=== PATIENT | female | born 1975 | race African-American/Black ===

== ENCOUNTER 2018-07-05 11:30 | Emergency (ER) | payer MEDICAID ==
[~2018-07-05] VITALS: Ht 170.2 cm; Wt 109.8 kg
[~2018-07-05 11:30] MED LIST: ARIP1SOL2 PO; QUET25TA PO; SERT20OR PO; TRAZ5POW MC
--- NOTE | 2018-07-05 11:34 | NUR ---
dr bhatt at bedside for eval.
--- NOTE | 2018-07-05 11:45 | NUR ---
Hilda piedra in [facility] - 07/05/18 at 1215 by SOPHIE laborer plumbing at bedside for ambroseal.
--- NOTE | 2018-07-05 11:45 | NUR ---
rn lab at bedside for blood draw.
--- NOTE | 2018-07-05 11:46 | NUR ---
pt to er bed 07. here for si. pt denies any plan at this time. denies any recent drug use. pt is aao. placed on si precaution. awaiting md fernández.
[2018-07-05 11:49] LABS: BASOPHILS # (AUTO) 0.1 /CMM (0.0-0.2); BASOPHILS % (AUTO) 0.4 % (0.0-2.0); EOSINOPHILS % (AUTO) 0.8 % (0.0-6.0); HEMATOCRIT 41 % (33-45); HEMOGLOBIN 13.6 g/dL (11.5-14.8); LYMPHOCYTES # (AUTO) 2.2 /CMM (0.8-4.8); LYMPHOCYTES % (AUTO) 17.2 % (20.0-44.0); MEAN CORPUSCULAR HEMOGLOBIN 29 PG (26.0-33.0); MEAN CORPUSCULAR HGB CONC 33 g/dl (31.0-36.0); MEAN CORPUSCULAR VOLUME 87 fL (82-100); MONOCYTES # (AUTO) 0.6 /CMM (0.1-1.30); MONOCYTES % (AUTO) 4.6 % (2.0-12.0); NEUTROPHILS # (AUTO) 9.5 /CMM (1.8-8.9); PLATELET COUNT (AUTO) 261 /CMM (150-450); RDW COEFFICIENT OF VARIATION 13.1 (11.5-15.0); RED BLOOD CELL COUNT(AUTO) 4.74 MIL/uL (4.0-5.2); WHITE BLOOD COUNT (AUTO) 12.5 K/uL (4.3-11.0)
[2018-07-05 11:56] LABS: CALCIUM, SERUM 8.7 mg/dL (8.5-10.1); CARBON DIOXIDE 26 mmol/L (21-32); CHLORIDE 104 mmol/L (98-107); CREATININE 1.1 mg/dL (0.6-1.3); GLUCOSE 270 mg/dL (74-106); POTASSIUM 3.7 mmol/L (3.5-5.1); SODIUM SERUM 137 mmol/L (136-145); UREA NITROGEN, BLOOD 12 mg/dL (7-18)
[2018-07-05 12:02] LABS: ACETAMINOPHEN 0 ug/ml (10-30); ALANINE AMINOTRANSFERASE 16 U/L (12-78); ALBUMIN 3.6 g/dL (3.4-5.0); ALCOHOL, BLOOD < 3 mg/dL (0-0); ALKALINE PHOSPHATASE 103 U/L (46-116); ASPARTATE AMINOTRANSFERASE 11 U/L (15-37); BILIRUBIN,DIRECT 0.1 mg/dL (0.0-0.2); BILIRUBIN,TOTAL 0.3 mg/dL (0.2-1.0); SALICYLATE 1.4 mg/dL (2.8-20.0); TOTAL PROTEIN, SERUM 7.3 g/dL (6.4-8.2)
--- NOTE | 2018-07-05 12:16 | NUR ---
pt provided w/ lunch tray.
[2018-07-05 12:45] LABS: APPEARANCE,URINE Slightly Cloudy (CLEAR); BILIRUBIN,URINE Negative (NEGATIVE); BLOOD, URINE Trace-intact Ery/uL (NEGATIVE); COLOR,URINE Yellow (YELLOW); KETONES,URINE Trace (NEGATIVE); LEUKOCYTE ESTERASE ,URINE Small (NEGATIVE); NITRITE, URINE Negative (NEGATIVE); PH,URINE 5.5 (5.0-8.0); PROTEIN,URINE Negative (NEGATIVE); UGLUCOSE >=1000 mg/dL (NEGATIVE)
--- NOTE | 2018-07-05 13:26 | NUR ---
called elfego corona eta in an hour.
[2018-07-05 13:31] LABS: RBC,URINE 0-3 /HPF (0-2); SQUAMOUS EPITHELIAL CELL,UR Moderate /HPF (None Seen)
[2018-07-05 13:32] LABS: BACTERIA,URINE 3+ /HPF (None Seen)
--- NOTE | 2018-07-05 14:39 | NUR ---
cj telles at bedside for psych eval.
[2018-07-05] MEDS ORDERED: INSULIN REGULAR, HUMAN 100 UNIT/ML 10 ML VIAL ONE (16:00)
[2018-07-05] MEDS ORDERED: INSULIN REGULAR, HUMAN 100 UNIT/ML 10 ML VIAL SQ ONE ×3 (16:00→20:30)
--- NOTE | 2018-07-05 17:38 | NUR ---
dr lauren made aware of recent accucheck. verbal order for regular insulin 4 units ordered and carried out. llq abdomen. dose witnessed by vernell kurtz.
[2018-07-05] MEDS ORDERED: METFORMIN 850 MG TABLET PO ONE (18:30)
--- NOTE | 2018-07-05 20:17 | NUR ---
dr lauren made aware of recent accucheck.
--- NOTE | 2018-07-05 20:47 | NUR ---
Incoming call fr [email or web address] [phone], will hold bed for pt & accept pt once BG below 200.
--- NOTE | 2018-07-05 22:15 | NUR ---
[phone] PT GOING TO UNIT 1 VOLUNTARY
--- NOTE | 2018-07-05 22:27 | NUR ---
REPORT GIVEN TO IMANI FOR [facility].
--- NOTE | 2018-07-05 22:38 | NUR ---
pt medically cleared. report given to blessing at [facility]. sent to [facility] for voluntary psych admit.
[2018-07-05 22:40] VITALS: BP 135/88
== END 2018-07-05 22:41 ==
LOC: ER 11:31
DX: R45.851 Suicidal ideations (principal); R73.9 Hyperglycemia, unspecified; F25.9 Schizoaffective disorder, unspecified; Z88.0 Allergy status to penicillin; Z88.8 Allergy status to other drugs, medicaments and biological substances
CPT/HCPCS: 36415; 80048; 80076; 80305; 80329; 81001; 82962 ×5; 84703; 85025; 87086; 96372 ×3; 99285; A4606; G0480 ×2; J1815; Z7610; 81000-TC

== ENCOUNTER 2018-08-29 08:43 | Emergency (ER) | payer MEDICAID ==
[~2018-08-29] VITALS: Ht 170.2 cm; Wt 112.9 kg
[2018-08-29] MEDS ORDERED: NITROGLYCERIN PACKET 1 GM PACKET ONE (09:11)
[2018-08-29] MEDS ORDERED: ASPIRIN 325 MG TABLET ONE (09:12)
--- NOTE | 2018-08-29 09:15 | NUR ---
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 NO SOB. VSS. SEEN BY MD FOR EVAL. SAFETY AND COMFORT MEASURES PROVIDED. EKG IN PROCESS AT BS. WILL MONITOR.
[2018-08-29] MEDS ORDERED: ASPIRIN EC 325 MG TABLET.DR PO ONE (09:25)
[2018-08-29] MEDS ORDERED: diphenhydrAMINE HCL 50 MG/ML VIAL ONE (09:25)
[2018-08-29] MEDS ORDERED: ASPIRIN 325 MG TABLET PO ONE (09:30)
[2018-08-29] MEDS ORDERED: diphenhydrAMINE HCL 50 MG/ML VIAL IV ONE (09:30)
[2018-08-29] MEDS ORDERED: NITROGLYCERIN PACKET 1 GM PACKET TD ONE (09:30)
--- NOTE | 2018-08-29 09:30 | NUR ---
MEDICATED ORDERED. IV ACCESS STARTED. BLOOD DRAWN FOR LABS.
[2018-08-29 09:34] LABS: BASOPHILS # (AUTO) 0.3 /CMM (0.0-0.2); BASOPHILS % (AUTO) 2.5 % (0.0-2.0); EOSINOPHILS % (AUTO) 0.9 % (0.0-6.0); HEMATOCRIT 42 % (33-45); HEMOGLOBIN 13.7 g/dL (11.5-14.8); LYMPHOCYTES # (AUTO) 2.5 /CMM (0.8-4.8); LYMPHOCYTES % (AUTO) 21.4 % (20.0-44.0); MEAN CORPUSCULAR HGB CONC 33 g/dl (31.0-36.0); MEAN CORPUSCULAR VOLUME 85 fL (82-100); MONOCYTES # (AUTO) 0.7 /CMM (0.1-1.30); MONOCYTES % (AUTO) 6.3 % (2.0-12.0); NEUTROPHILS # (AUTO) 7.9 /CMM (1.8-8.9); NEUTROPHILS % (AUTO) 68.9 % (43.0-81.0); PLATELET COUNT (AUTO) 280 /CMM (150-450); RDW COEFFICIENT OF VARIATION 13.8 (11.5-15.0); RED BLOOD CELL COUNT(AUTO) 4.94 MIL/uL (4.0-5.2); WHITE BLOOD COUNT (AUTO) 11.5 K/uL (4.3-11.0)
--- NOTE | 2018-08-29 09:41 | NUR ---
KATELYN AT BS.
[2018-08-29 09:44] LABS: CALCIUM, SERUM 9.4 mg/dL (8.5-10.1); CARBON DIOXIDE 27 mmol/L (21-32); CHLORIDE 104 mmol/L (98-107); CREATININE 0.8 mg/dL (0.6-1.3); GLUCOSE 105 mg/dL (74-106); POTASSIUM 3.7 mmol/L (3.5-5.1); SODIUM SERUM 139 mmol/L (136-145); UREA NITROGEN, BLOOD 9 mg/dL (7-18)
[2018-08-29 09:49] LABS: INR 0.97 (0.87-1.13)
[2018-08-29 09:53] LABS: TROPONIN I < 0.017 ng/mL (0.00-0.056)
--- NOTE | 2018-08-29 10:32 | NUR ---
Patient does not wish to proceed with medical care recommended by . Patient given information related to possible complications, up to and including , which could occur as a result of leaving the hospital at this time. Patient verbalizes understanding of risks involved due to leaving against medical advice. Patient has signed AMA form.
[2018-08-29 10:34] VITALS: BP 137/80
--- NOTE | 2018-08-29 10:36 | NUR ---
Patient does not wish to proceed with medical care recommended by Dr. Hackett. Patient given information related to possible complications, up to and including , which could occur as a result of leaving the hospital at this time. Patient verbalizes understanding of risks involved due to leaving against medical advice. Patient has signed AMA form.
== END 2018-08-29 10:37 | disposition left against medical advice (07) ==
LOC: ER 08:43
DX: R07.89 Other chest pain (principal); F14.90 Cocaine use, unspecified, uncomplicated; E11.9 Type 2 diabetes mellitus without complications; I10 Essential (primary) hypertension; F25.9 Schizoaffective disorder, unspecified; F17.200 Nicotine dependence, unspecified, uncomplicated; R00.0 Tachycardia, unspecified; Z88.0 Allergy status to penicillin; Z60.2 Problems related to living alone; Z88.8 Allergy status to other drugs, medicaments and biological substances
CPT/HCPCS: 36415; 71045; 80048; 84484; 85025; 85730; 93005 ×2; 96374; 99285; A4606; J1200; Z7610

== ENCOUNTER 2020-11-22 15:08 | Emergency (ER) | payer MEDICAID ==
--- NOTE | 2020-11-22 17:55 | NUR ---
CALLED IN ED WAITING ROOM. NO RESPONSE.
--- NOTE | 2020-11-22 18:27 | NUR ---
CALLED IN ED WAITING ROOM. NO RESPONSE.
--- NOTE | 2020-11-22 18:30 | NUR ---
UNABLE TO DEPART IN [facility]
== END 2020-11-22 18:30 | disposition left against medical advice (07) ==
LOC: ER 15:08
DX: Z75.3 Unavailability and inaccessibility of health-care facilities (principal)

== ENCOUNTER 2021-03-02 07:58 | Emergency (ER) | payer MEDICAID ==
[~2021-03-02] VITALS: Ht 170.2 cm; Wt 74.8 kg
[2021-03-02 08:07] VITALS: BP 142/91
[2021-03-02] MEDS ORDERED: DOXY100C41 PO (08:12)
[2021-03-02] MEDS ORDERED: GUAI-671 PO (08:12)
--- NOTE | 2021-03-02 08:14 | NUR ---
decadron IM given as ordered (4 mg )
--- NOTE | 2021-03-02 08:15 | NUR ---
Patient discharged to home in stable condition. Written and verbal after care instructions given. Patient verbalizes understanding of instruction.
[2021-03-02] MEDS ORDERED: DEXAMETHASONE SOD PHOSPHATE 4 MG/ML VIAL ONE (08:16)
[2021-03-02] MEDS ORDERED: DEXAMETHASONE SOD PHOSPHATE 10 MG/ML VIAL IM ONE (08:30)
== END 2021-03-02 08:22 | disposition home or self-care (01) ==
LOC: ER 08:03
DX: J02.9 Acute pharyngitis, unspecified (principal); F17.200 Nicotine dependence, unspecified, uncomplicated; F25.9 Schizoaffective disorder, unspecified; Z88.0 Allergy status to penicillin; Z88.8 Allergy status to other drugs, medicaments and biological substances; Z60.2 Problems related to living alone; Z79.899 Other long term (current) drug therapy
CPT/HCPCS: 96372; 99283; J1100

== ENCOUNTER 2021-10-30 01:40 | Emergency (ER) | payer MEDICAID ==
[~2021-10-30] VITALS: Ht 170.2 cm; Wt 71.7 kg
[~2021-10-30 01:40] MED LIST changes: +DOXY-326 PO; +GUAI-671 PO
--- NOTE | 2021-10-30 02:03 | NUR ---
PT AAOX4. BIBSELF C/O SI WITH NO PLAN. REQUESTING [facility] ADMISSION. AWAITING ER MD FOR EVAL AND ORDERS.
--- NOTE | 2021-10-30 02:05 | NUR ---
URINE COLLECTED, SENT TO LAB.
--- NOTE | 2021-10-30 02:05 | NUR ---
RAKELID SWABBED, SENT TO LAB.
[2021-10-30 02:16] LABS: BASOPHILS # (AUTO) 0.1 K/uL (0.0-0.2); BASOPHILS % (AUTO) 0.7 % (0.0-2.0); EOSINOPHILS % (AUTO) 1.8 % (0.0-6.0); HEMATOCRIT 43 % (33-45); HEMOGLOBIN 14.1 g/dL (11.5-14.8); LYMPHOCYTES # (AUTO) 1.9 K/uL (0.8-4.8); LYMPHOCYTES % (AUTO) 22.8 % (20.0-44.0); MEAN CORPUSCULAR HGB CONC 33 g/dl (31.0-36.0); MEAN CORPUSCULAR VOLUME 93 fL (82-100); MONOCYTES # (AUTO) 0.5 K/uL (0.1-1.30); MONOCYTES % (AUTO) 5.7 % (2.0-12.0); NEUTROPHILS # (AUTO) 5.8 K/uL (1.8-8.9); PLATELET COUNT (AUTO) 239 K/uL (150-450); WHITE BLOOD COUNT (AUTO) 8.4 K/uL (4.3-11.0)
[2021-10-30 02:24] LABS: CALCIUM, SERUM 9.1 mg/dL (8.5-10.1); CARBON DIOXIDE 29 mmol/L (21-32); CHLORIDE 105 mmol/L (98-107); CREATININE 0.9 mg/dL (0.6-1.3); GLUCOSE 66 mg/dL (74-106); POTASSIUM 3.9 mmol/L (3.5-5.1); SODIUM SERUM 141 mmol/L (136-145); UREA NITROGEN, BLOOD 12 mg/dL (7-18)
[2021-10-30 02:31] LABS: BILIRUBIN,URINE SMALL (NEGATIVE); LEUKOCYTE ESTERASE ,URINE SMALL (NEGATIVE); NITRITE, URINE NEGATIVE (NEGATIVE); PROTEIN,URINE TRACE mg/dl (NEGATIVE); UGLUCOSE NEGATIVE (NEGATIVE)
[2021-10-30 02:31] LABS: ALANINE AMINOTRANSFERASE 16 U/L (12-78); ALBUMIN 4.4 g/dL (3.4-5.0); ALCOHOL, BLOOD < 3 mg/dL (0-0); ALKALINE PHOSPHATASE 85 U/L (46-116); ASPARTATE AMINOTRANSFERASE 14 U/L (15-37); BILIRUBIN,DIRECT 0.1 mg/dL (0.0-0.2); BILIRUBIN,TOTAL 0.5 mg/dL (0.2-1.0); TOTAL PROTEIN, SERUM 7.9 g/dL (6.4-8.2)
[2021-10-30 02:35] LABS: COLOR,URINE DARK YELLOW (YELLOW)
[2021-10-30 02:40] LABS: BACTERIA,URINE Moderate /HPF (None Seen); MUCUS,URINE Moderate /LPF (None Seen); RBC,URINE 0-2 /HPF (0-2); SQUAMOUS EPITHELIAL CELL,UR Moderate /HPF (None Seen); WBC,URINE 21-50 /HPF (0-3)
[2021-10-30 02:48] LABS: ACETAMINOPHEN < 2 ug/ml (10-30)
[2021-10-30] MEDS ORDERED: NITROFURANTOIN/NITROFURAN MONOHYDRATE 100 MG CAPSULE ONE (02:59)
[2021-10-30] MEDS ORDERED: NITROFURANTOIN/NITROFURAN MONOHYDRATE 100 MG CAPSULE PO ONE (03:00)
[2021-10-30] MEDS ORDERED: IBUPROFEN 600 MG TABLET ONE ×2 (04:14→05:21)
[2021-10-30] MEDS ORDERED: MAG HYDROX/AL HYDROX/SIMETH 30 ML UDC ONE ×2 (04:14→05:21)
[2021-10-30] MEDS ORDERED: MAG HYDROX/AL HYDROX/SIMETH 30 ML UDC PO ONE (04:30)
[2021-10-30] MEDS ORDERED: IBUPROFEN 600 MG TABLET PO ONE (04:30)
[2021-10-30] MEDS ORDERED: NITR100C6 PO (05:11)
--- NOTE | 2021-10-30 09:46 | NUR ---
CALLED [facility] AND SET UP BLS TRANSPORT ETA 1100
--- NOTE | 2021-10-30 09:55 | NUR ---
REPORT GIVEN TO NURSING STEPHON PALMER FROM [facility]
--- NOTE | 2021-10-30 11:33 | NUR ---
THE PATIENT IS TRANSFERED TO [facility] IN STABLE CONDITION.
[2021-10-30 11:34] VITALS: BP 131/86
== END 2021-10-30 11:34 ==
LOC: ER 01:44
DX: R45.851 Suicidal ideations (principal); N39.0 Urinary tract infection, site not specified; F15.10 Other stimulant abuse, uncomplicated; Z20.822 Contact with and (suspected) exposure to COVID-19; F17.200 Nicotine dependence, unspecified, uncomplicated; Z79.899 Other long term (current) drug therapy; Z88.0 Allergy status to penicillin; Z88.8 Allergy status to other drugs, medicaments and biological substances; F25.9 Schizoaffective disorder, unspecified; E11.9 Type 2 diabetes mellitus without complications; I10 Essential (primary) hypertension; F32.A Depression, unspecified
CPT/HCPCS: 36415; 80048; 80076; 80143; 80307; 80320; 81001; 84703; 85025; 87086; 87426; 99285; C9803; G0480

== ENCOUNTER 2022-02-22 11:26 | Emergency (ER) | payer MEDICAID ==
[~2022-02-22] VITALS: Ht 170.2 cm; Wt 67.1 kg
[~2022-02-22 11:26] MED LIST changes: +NITR100C6 PO
--- NOTE | 2022-02-22 11:43 | NUR ---
CAME IN FOR FEELING SUICIDAL,PLAN IS TO OD ON MEDS,REQUESTING VOLUNTARY ADMISSION TO [facility]. TO ER BED 18, HOOKED TO MONITOR, CHANGEDT O HOSP GOWN, WARM BLANKET PROVIDED. PATIENT AAO x 4. SUICIDAL PRECAUTIONS APPLIED. 1:[address] RODRIGUEZ AT BEDSIDE
--- NOTE | 2022-02-22 11:52 | NUR ---
RAPID COVID SWAB DONE AND SENT TO LAB
[2022-02-22 12:19] LABS: BASOPHILS % (AUTO) 0.5 % (0.0-2.0); EOSINOPHILS % (AUTO) 1.1 % (0.0-6.0); HEMATOCRIT 41 % (33-45); HEMOGLOBIN 13.4 g/dL (11.5-14.8); LYMPHOCYTES # (AUTO) 1.5 K/uL (0.8-4.8); LYMPHOCYTES % (AUTO) 18.2 % (20.0-44.0); MEAN CORPUSCULAR HGB CONC 33 g/dl (31.0-36.0); MEAN CORPUSCULAR VOLUME 91 fL (82-100); MONOCYTES # (AUTO) 0.6 K/uL (0.1-1.30); MONOCYTES % (AUTO) 6.9 % (2.0-12.0); NEUTROPHILS # (AUTO) 6.1 K/uL (1.8-8.9); NEUTROPHILS % (AUTO) 73.3 % (43.0-81.0); PLATELET COUNT (AUTO) 251 K/uL (150-450); RED BLOOD CELL COUNT(AUTO) 4.51 MIL/uL (4.0-5.2); WHITE BLOOD COUNT (AUTO) 8.3 K/uL (4.3-11.0)
[2022-02-22 12:25] LABS: BILIRUBIN,URINE NEGATIVE (NEGATIVE); COLOR,URINE YELLOW (YELLOW); LEUKOCYTE ESTERASE ,URINE MODERATE (NEGATIVE); NITRITE, URINE NEGATIVE (NEGATIVE); PROTEIN,URINE NEGATIVE (NEGATIVE); UGLUCOSE NEGATIVE (NEGATIVE); UROBILINOGEN,URINE 0.2 EU/dL (0.2)
[2022-02-22 12:32] LABS: ALANINE AMINOTRANSFERASE 15 U/L (12-78); ALBUMIN 3.7 g/dL (3.4-5.0); ALCOHOL, BLOOD < 3 mg/dL (0-0); ALKALINE PHOSPHATASE 94 U/L (46-116); ASPARTATE AMINOTRANSFERASE 11 U/L (15-37); BILIRUBIN,DIRECT 0.1 mg/dL (0.0-0.2); BILIRUBIN,TOTAL 0.1 mg/dL (0.2-1.0); CALCIUM, SERUM 8.6 mg/dL (8.5-10.1); CARBON DIOXIDE 28 mmol/L (21-32); CHLORIDE 109 mmol/L (98-107); CREATININE 0.8 mg/dL (0.6-1.3); GLUCOSE 83 mg/dL (74-106); POTASSIUM 3.7 mmol/L (3.5-5.1); SODIUM SERUM 142 mmol/L (136-145); TOTAL PROTEIN, SERUM 7.1 g/dL (6.4-8.2); UREA NITROGEN, BLOOD 9 mg/dL (7-18)
[2022-02-22 12:34] LABS: ACETAMINOPHEN 0 ug/ml (10-30)
[2022-02-22 12:44] LABS: BACTERIA,URINE Moderate /HPF (None Seen); SQUAMOUS EPITHELIAL CELL,UR Moderate /HPF (None Seen); WBC,URINE 21-50 /HPF (0-3)
--- NOTE | 2022-02-22 12:48 | NUR ---
FAXED CLINICALS TO [facility]
[2022-02-22] MEDS ORDERED: NITROFURANTOIN/MONOHYDRATE MACROCRYSTALS 100 MG CAPSULE PO ONE (13:30)
[2022-02-22] MEDS ORDERED: NITROFURANTOIN/MONOHYDRATE MACROCRYSTALS 100 MG CAPSULE ONE (13:33)
--- NOTE | 2022-02-22 16:45 | NUR ---
PT ACCEPTED TO [facility] UNDER THE CARE OF DR. CORTEZ NUMBER FOR REPORT [phone] ETA 1800
[2022-02-22 17:42] VITALS: BP 140/81
--- NOTE | 2022-02-22 18:02 | NUR ---
PATIENT PICKED UP BY [facility] IN STABLE CONDITION. ALL BELONGINGS GIVEN TO THE PATIENT.
--- NOTE | 2022-02-22 18:47 | NUR ---
Hilda piedra in [facility] - 02/22/22 at 1849 by PAOLA PT ACCEPTED TO [facility] UNDER THE CARE OF DR. CORTEZ NUMBER FOR REPORT [phone]
--- NOTE | 2022-02-22 18:54 | NUR ---
REPORT GIVEN TO ERIK SHAFER OF [facility] UNIT 1
== END 2022-02-22 18:56 ==
LOC: ER 11:26
DX: R45.851 Suicidal ideations (principal); F15.10 Other stimulant abuse, uncomplicated; Z59.00 Homelessness unspecified; N39.0 Urinary tract infection, site not specified; F25.9 Schizoaffective disorder, unspecified; Z88.0 Allergy status to penicillin; Z88.8 Allergy status to other drugs, medicaments and biological substances; E11.9 Type 2 diabetes mellitus without complications; I10 Essential (primary) hypertension; Z79.899 Other long term (current) drug therapy
CPT/HCPCS: 36415; 80048; 80076; 80143; 80307; 80320; 81001; 85025; 87086; 87426; 99285; C9803; G0480

== ENCOUNTER 2024-06-19 19:06 | Emergency (ER) | payer MEDICAID ==
[~2024-06-19] VITALS: Ht 167.6 cm; Wt 113.4 kg
[2024-06-19 20:16] LABS: BASOPHILS # (AUTO) 0.1 K/uL (0.0-0.2); BASOPHILS % (AUTO) 1.1 % (0.0-2.0); EOSINOPHILS # (AUTO) 0.2 K/uL (0.0-0.7); EOSINOPHILS % (AUTO) 2.5 % (0.0-6.0); HEMATOCRIT 34 % (33-45); HEMOGLOBIN 11.1 g/dL (11.5-14.8); LYMPHOCYTES # (AUTO) 2.1 K/uL (0.8-4.8); LYMPHOCYTES % (AUTO) 29.4 % (20.0-44.0); MEAN CORPUSCULAR HEMOGLOBIN 29 PG (26.0-33.0); MEAN CORPUSCULAR HGB CONC 33 g/dl (31.0-36.0); MEAN CORPUSCULAR VOLUME 87 fL (82-100); MONOCYTES # (AUTO) 0.8 K/uL (0.1-1.30); NEUTROPHILS # (AUTO) 3.9 K/uL (1.8-8.9); PLATELET COUNT (AUTO) 237 K/uL (150-450); RED BLOOD CELL COUNT(AUTO) 3.92 MIL/uL (4.0-5.2); RED CELL DISTRIBUTION WIDTH 14.5 % (11.5-15.0)
[2024-06-19 20:22] LABS: APPEARANCE,URINE Slightly Cloudy (CLEAR); BILIRUBIN,URINE Negative (NEGATIVE); BLOOD, URINE Small Ery/uL (NEGATIVE); COLOR,URINE YELLOW (YELLOW); KETONES,URINE Negative (NEGATIVE); LEUKOCYTE ESTERASE ,URINE Negative (NEGATIVE); NITRITE, URINE Negative (NEGATIVE); PH,URINE 5.5 (5.0-8.0); PROTEIN,URINE Trace mg/dl (NEGATIVE); UGLUCOSE Negative (NEGATIVE)
[2024-06-19 20:22] LABS: CALCIUM, SERUM 9.2 mg/dL (8.5-10.1); CREATININE 0.8 mg/dL (0.6-1.3); POTASSIUM 3.9 mmol/L (3.5-5.1)
[2024-06-19 20:28] LABS: PREGNANCY TEST URINE QUAL NEGATIVE (NEGATIVE)
[2024-06-19 20:45] LABS: ADD URINE CULTURE NO; BACTERIA,URINE Few /HPF (None Seen); SQUAMOUS EPITHELIAL CELL,UR Few /HPF (None Seen); WBC,URINE 0-2 /HPF (0-3)
[2024-06-19 20:46] LABS: HYALINE CASTS, URINE Few /LPF (None Seen); URINE AMORPHOUS URATE Few /HPF (None Seen)
[2024-06-19] MEDS ORDERED: CEFTRIAXONE 500 MG VIAL ONE (21:17)
[2024-06-19] MEDS ORDERED: AZITHROMYCIN 250 MG TABLET ONE (21:17)
[2024-06-19] MEDS: CEFTRIAXONE 1 G VIAL IM ONE (21:24)
[2024-06-19] MEDS: AZITHROMYCIN 250 MG TABLET PO ONE (21:25)
[2024-06-19] MEDS: IBUPROFEN 400 MG TABLET PO ONE (21:30)
[2024-06-19] MEDS ORDERED: IBUPROFEN 400 MG TABLET ONE (21:31)
[2024-06-19 21:56] VITALS: BP 135/79; TEMP 98.1; O2SAT 98
== END 2024-06-19 21:57 | disposition home or self-care (01) ==
LOC: ER 19:08
DX: R10.2 Pelvic and perineal pain (principal); R35.0 Frequency of micturition; R39.15 Urgency of urination; I10 Essential (primary) hypertension; E11.9 Type 2 diabetes mellitus without complications; F25.9 Schizoaffective disorder, unspecified; F32.A Depression, unspecified; F19.10 Other psychoactive substance abuse, uncomplicated; F17.200 Nicotine dependence, unspecified, uncomplicated; Z20.2 Contact with and (suspected) exposure to infections with a predominantly sexual mode of transmission; Z88.8 Allergy status to other drugs, medicaments and biological substances; Z60.2 Problems related to living alone
CPT/HCPCS: 99283; 96372; 85025; 80048; 84703; 81001; 36415; 87491; 87591; J0696